=== PATIENT | female | born 1940 | race Caucasian/White ===

== ENCOUNTER 2016-10-03 15:44 | Inpatient (IN) | payer MEDICARE, OTHER ==
[~2016-10-03] VITALS: Ht 167.6 cm; Wt 76.9 kg
[2016-10-03] MEDS ORDERED: FLEC100T PO (17:59)
[2016-10-03] MEDS ORDERED: WARF2.5T PO (17:59)
[2016-10-03] MEDS ORDERED: ESTR0.5T PO (17:59)
[2016-10-03] MEDS ORDERED: CALC250T PO (17:59)
[2016-10-03 18:01] VITALS: BP 142/79
[2016-10-03] MEDS: SODIUM CHLORIDE 0.9% 1,000 ML IV SCH (18:47)
[2016-10-03] MEDS ORDERED: ACETAMINOPHEN 325 MG TABLET PO PRN (19:00)
[2016-10-03] MEDS ORDERED: BISACODYL 10 MG SUPP PR PRN (19:00)
[2016-10-03] MEDS ORDERED: ONDANSETRON 2MG/ML, 2ML IVP PRN (19:00)
[2016-10-03] MEDS ORDERED: POLYETHYLENE GLYCOL 17 GM PACKET PO PRN (19:00)
[2016-10-03] MEDS ORDERED: OXYcodone IR 5MG TABLET PO PRN (19:00)
[2016-10-03] MEDS: PLEASE ENTER ALLERGIES MC SCH ×6 (19:30→21:56)
[2016-10-03] MEDS ORDERED: FLECAINIDE 100MG TABLET PO SCH (21:00)
[2016-10-03] MEDS: FLECAINIDE 100MG TABLET PO SCH (22:00)
[2016-10-03 23:31] VITALS: BP 115/52
[2016-10-03 23:56] VITALS: BP 120/64
[2016-10-04] VITALS (10 sets, daily range): BP systolic 104–136; BP diastolic 52–76
[2016-10-04] MEDS ORDERED: KETOROLAC 30 MG/1 ML IM ONE (05:00)
[2016-10-04 06:06] LABS: HEMOGLOBIN 13.1 g/dL (11.7-16.4)
[2016-10-04 06:16] LABS: ASPARTATE AMINO TRANSFERASE 26 U/L (15-37); BLOOD UREA NITROGEN 11 mg/dL (7-18)
[2016-10-04] MEDS ORDERED: KETOROLAC 30 MG/1 ML IVPush ONE (07:00)
[2016-10-04] MEDS ORDERED: LIDOCAINE 1%, 20ML ONE (07:37)
[2016-10-04] MEDS ORDERED: SODIUM BICARBONATE 4.2%, 5ML ONE (07:37)
[2016-10-04] MEDS: SODIUM CHLORIDE 0.9% 1,000 ML IV SCH (08:00)
[2016-10-04] MEDS ORDERED: CALCIUM CARBONATE 500 MG TABLET PO SCH (09:00)
[2016-10-04] MEDS ORDERED: WARFARIN 2.5 MG TABLET PO-COUM SCH (09:00)
[2016-10-04] MEDS ORDERED: SENNA/DOCUSATE TABLET PO SCH (09:00)
[2016-10-04] MEDS: FLECAINIDE 100MG TABLET PO SCH (10:00)
== END 2016-10-04 17:00 | disposition home or self-care (01) | DRG 644 ==
LOC: 4WST 17:50 → DCLOUNGE 10-04 16:45
PROVIDERS: ADMIT Internal Medicine; ATTEND Internal Medicine
PROC: 30233L1 Transfusion of Nonautologous Fresh Plasma into Peripheral Vein, Percutaneous Approach (ICD-10-PCS; 2016-10-03)
PROC: 30233K1 Transfusion of Nonautologous Frozen Plasma into Peripheral Vein, Percutaneous Approach (ICD-10-PCS; 2016-10-03)
PROC: 0GBG3ZX Excision of Left Thyroid Gland Lobe, Percutaneous Approach, Diagnostic (ICD-10-PCS; principal; 2016-10-04)
PROC: BG44ZZZ Ultrasonography of Thyroid Gland (ICD-10-PCS; 2016-10-04)
DX: E07.9 Disorder of thyroid, unspecified (principal); E87.1 Hypo-osmolality and hyponatremia; D68.69 Other thrombophilia; I48.0 Paroxysmal atrial fibrillation; Z82.49 Family history of ischemic heart disease and other diseases of the circulatory system; Z79.01 Long term (current) use of anticoagulants; Z90.49 Acquired absence of other specified parts of digestive tract; Z90.710 Acquired absence of both cervix and uterus
CPT/HCPCS: 36415; 76942; 80053; 84439; 84443; 84480; 84481; 85025; 85610; 86850; 86900; 88304; J1885; J3490; J7030; P9017

== ENCOUNTER → 2019-07-26 | Outpatient (CLI) | payer MEDICARE, OTHER ==
[~2019-07-26] MED LIST: CALC250T PO; ESTR0.5T PO; FLEC100T PO; WARF2.5T PO
== END | disposition home or self-care (01) ==
LOC: CFH 08:53
PROVIDERS: ATTEND Nurse Practitioner Family
DX: I08.3 Combined rheumatic disorders of mitral, aortic and tricuspid valves (principal); I48.91 Unspecified atrial fibrillation
CPT/HCPCS: 93306